=== PATIENT | male | born 1995 | race Two or more races ===

== ENCOUNTER 2023-01-12 15:59 | Emergency (ER) | payer OTHER ==
[~2023-01-12] VITALS: Ht 180.3 cm; Wt 61.2 kg
[2023-01-12] MEDS ORDERED: LEVSIN0.125 MG (16:18)
[2023-01-12 17:10] LABS: HEMATOCRIT 39.2 % (39.0-48.0); MEAN CELL VOLUME 76.8 fL (80.0-100.00); MEAN CORPUSCULAR HEMOGLOBIN 25.5 pg (27.00-32.0); MEAN CORPUSCULAR HGB CONC 33.2 g/dl (32.0-36.0); PLATELET COUNT 441 K/uL (150-450); RED CELL DISTRIBUTION WIDTH 15.4 % (11.5-14.5)
[2023-01-12 17:26] LABS: CALCIUM 9.2 mg/dL (8.5-10.1); CREATININE SERUM 0.84 mg/dL (0.70-1.30); GFR 110.45; POTASSIUM 3.71 mEq/L (3.5-5.1)
== END 2023-01-12 21:25 | disposition home or self-care (01) ==
LOC: ER 16:00
PROVIDERS: Emergency Medicine
DX: R10.84 Generalized abdominal pain (principal)